=== PATIENT | male | born 1970 | race Caucasian/White ===

== ENCOUNTER 2018-12-29 06:39 | Inpatient (IN) ==
[2018-12-29] MEDS ORDERED: CeFAZolin Syr 2,000MG/20 ML 2,000 MG/20 ML SYRINGE IVPB ONE (07:11)
[2018-12-29] MEDS ORDERED: *HR* Propofol 200 MG/20 ML VIAL IVP ONE (07:12)
[2018-12-29] MEDS ORDERED: *HR* Midazolam HCl 2 MG/2 ML VIAL ONE (07:12)
[2018-12-29] MEDS ORDERED: *HR* Succinylcholine 200 MG/10 ML VIAL IVP ONE (07:12)
[2018-12-29] MEDS ORDERED: Lidocaine -MPF 4% 5 ML AMPUL ONE (07:12)
[2018-12-29] MEDS ORDERED: *HR* FentaNYL (PF) 100 MCG/2 ML VIAL ONE ×2 (07:12→08:50)
[2018-12-29] MEDS ORDERED: Lidocaine -MPF 2% 2 ML VIAL ONE (07:12)
[2018-12-29] MEDS ORDERED: Ringers Solution, Lactated 1,000 ML IVC SCH ×3 (07:15→11:08)
[2018-12-29] MEDS ORDERED: *HR* OxyCODONE Immed Rel 5 MG TABLET PO ONE (07:45)
[2018-12-29] MEDS ORDERED: Bacitracin 50,000 UNIT, Polymyxin B Sulfate 500,000 UNIT, Sodium Chloride IRRigation 1,... IR ONE (07:45)
[2018-12-29] MEDS ORDERED: Gabapentin 300 MG CAPSULE PO ONE (07:45)
[2018-12-29] MEDS ORDERED: *HR* OxyCODONE Immed Rel 5 MG TABLET ONE (07:56)
[2018-12-29] MEDS ORDERED: Gabapentin 300 MG CAPSULE ONE (07:57)
[2018-12-29] MEDS ORDERED: Acetaminophen IV 1,000 MG/100 ML INFUS..BTL ONE (07:58)
[2018-12-29] MEDS ORDERED: *HR* Rocuronium Bromide 50 MG/5 ML VIAL ONE (08:05)
[2018-12-29] MEDS ORDERED: Dexamethasone 4 MG/ML VIAL ONE (08:36)
[2018-12-29] MEDS ORDERED: Ondansetron 4 MG/2 ML VIAL ONE (08:36)
[2018-12-29] MEDS ORDERED: Acetaminophen 325 MG TABLET PO PRN (11:08)
[2018-12-29] MEDS ORDERED: Ondansetron 4 MG/2 ML VIAL IVP PRN (11:08)
[2018-12-29] MEDS ORDERED: Naloxone 0.4 MG/ML INJ IVP PRN (11:08)
[2018-12-29] MEDS: *HR* OxyCODONE Immed Rel 5 MG TABLET PO PRN ×2 (11:48→20:03)
[2018-12-29] MEDS ORDERED: Gabapentin 300 MG CAPSULE PO PRN (15:00)
[2018-12-29] MEDS ORDERED: MEDICINAL MARIJUANA PO SCH (15:00)
[2018-12-29] MEDS: *HR* HYDROcodone/Acet 5/325 mg TABLET PO PRN ×2 (15:39→23:10)
[2018-12-29] MEDS: ceFAZolin 2,000 MG in 0.9 % Sodium Chloride 100 ML IVPB SCH ×2 (15:41→23:11)
[2018-12-29] MEDS: PARoxetine 20 MG TABLET PO SCH (18:36)
[2018-12-29] MEDS: Terbinafine Hcl 250 MG PO SCH (18:37)
[2018-12-29] MEDS: Naltrexone HCl 50 MG TABLET PO SCH (18:37)
[2018-12-29] MEDS ORDERED: Famotidine 20 MG TABLET PO SCH (21:00)
[2018-12-30] MEDS: *HR* OxyCODONE Immed Rel 5 MG TABLET PO PRN ×5 (01:44→17:44)
[2018-12-30] MEDS: Terbinafine Hcl 250 MG PO SCH (16:56)
[2018-12-30] MEDS: PARoxetine 20 MG TABLET PO SCH (17:44)
[2018-12-30] MEDS: Naltrexone HCl 50 MG TABLET PO SCH (17:46)
[2018-12-30 18:00] VITALS: BP 112/68
== END 2018-12-30 18:45 | disposition home or self-care (01) | DRG 497 ==
LOC: SAMDAY 06:39 → 3NENU 11:14
PROVIDERS: ADMIT Orthopaedic Surgery Orthopaedic Surgery of the Spine; ATTEND Orthopaedic Surgery Orthopaedic Surgery of the Spine

== ENCOUNTER 2021-10-15 04:32 | Inpatient (IN) ==
[2021-10-15] MEDS ORDERED: Naloxone 0.4 MG/ML INJ IVP PRN (10:39)
[2021-10-15] MEDS ORDERED: Acetaminophen 325 MG TABLET PO PRN (10:39)
[2021-10-15] MEDS ORDERED: *HR* LORazepam 2 MG/ML VIAL IVP ONE (13:24)
[2021-10-15] MEDS: Dexmedetomidine HCl 400 MCG/100 ML MLS IVC SCH (15:27)
[2021-10-15 16:15] LABS: ABG Base Excess 4 mEq/L (-2 to 3); ABG HCO3 29 mEq/L (21-27); ABG Oxygen Saturation 93 % (95-98); ABG PCO2 43 mmHg (35-45); ABG PH 7.44 pH Units (7.32-7.45); ABG PO2 66 mmHg (85-104); ABG TCO2 30 mEq/L (20-26)
[2021-10-15] MEDS: Ampicillin/Sulbactam 1,500 MG in 0.9 % Sodium Chloride Mini Bag 100 ML IVPB SCH ×2 (18:14→23:26)
[2021-10-15] MEDS: Sodium Bicarbonate 75 MEQ in 0.45 % Sodium Chloride 1,000 ML IVC SCH (19:15)
[2021-10-16 00:56] LABS: Basophils % 0.5 %; Eosinophils # 0.1 K/mcL (0.0-0.6); Eosinophils % 3.2 %; Hematocrit 34.7 % (37.5-50.1); Immature Granulocytes % 0.5 % (0-4); Lymphocytes # 1.1 K/mcL (0.6-4.6); Lymphocytes % 24.6 %; Mean Corpuscular HGB Conc 34.6 g/dL (31.6-35.5); Mean Corpuscular Hemoglobin 31.7 pg (28.0-33.3); Mean Corpuscular Volume 91.8 fL (83.0-100.0); Mean Platelet Volume 10.9 fL (9.4-12.4); Monocytes # 0.4 K/mcL (0.0-1.3); Monocytes % 9.5 %; Neutrophils # 2.7 K/mcL (1.6-8.9); Platelet Count 142 K/mcL (140-400); Red Blood Count 3.78 M/mcL (4.19-5.50); Red Cell Distribution Width 12.2 % (11.5-14.5); Segmented Neutrophils % 61.7 %; White Blood Count 4.4 K/mcL (4.3-11.1)
[2021-10-16 00:58] LABS: VBG HCO3 34 mEq/L (21-27); VBG PCO2 47 mmHg (41-51); VBG PH 7.47 pH Units (7.32-7.42); VBG PO2 74 mmHg (25-50)
[2021-10-16 01:18] LABS: BUN/Creatinine Ratio 18 (6-26); Blood Urea Nitrogen 21 mg/dL (6-20); Calcium 8.8 mg/dL (8.6-10.3); Carbon Dioxide 35 mEq/L (23-29); Chloride 104 mEq/L (98-107); Glucose 87 mg/dL (70-105); Osmolality,Calculated 302 (280-300); Potassium 3.4 mEq/L (3.5-5.1); Sodium 145 mEq/L (136-145); eGFR For African Americans > 60 (> 60); eGFR For Non-African Americans > 60 (> 60)
[2021-10-16 01:19] LABS: Alanine Aminotransferase 14 Units/L (7-52); Albumin 3.3 g/dL (3.5-5.7); Albumin/Globulin Ratio 1.4 (1.1-2.2); Alkaline Phosphatase 42 Units/L (34-104); Aspartate Amino Transferase 20 Units/L (13-39); BUN/Creatinine Ratio 18 (6-26); Bilirubin,Total 0.5 mg/dL (0.3-1.0); Blood Urea Nitrogen 21 mg/dL (6-20); Calcium 8.8 mg/dL (8.6-10.3); Carbon Dioxide 35 mEq/L (23-29); Chloride 104 mEq/L (98-107); Globulin 2.4 g/dL (2.4-3.5); Glucose 87 mg/dL (70-105); Magnesium 2.1 mg/dL (1.6-2.6); Osmolality,Calculated 302 (280-300); Potassium 3.4 mEq/L (3.5-5.1); Sodium 145 mEq/L (136-145); Total Protein 5.7 g/dL (6.4-8.9); eGFR For African Americans > 60 (> 60); eGFR For Non-African Americans > 60 (> 60)
[2021-10-16] MEDS: Dexmedetomidine HCl 400 MCG/100 ML MLS IVC SCH ×3 (01:22→13:33)
[2021-10-16] MEDS: Sodium Bicarbonate 75 MEQ in 0.45 % Sodium Chloride 1,000 ML IVC SCH (05:28)
[2021-10-16] MEDS: Ampicillin/Sulbactam 1,500 MG in 0.9 % Sodium Chloride Mini Bag 100 ML IVPB SCH ×3 (05:28→17:18)
[2021-10-16] MEDS ORDERED: D5% in Water 1,000 ML IVC SCH (07:45)
[2021-10-16 08:47] LABS: ABG Base Excess 11 mEq/L (-2 to 3); ABG HCO3 36 mEq/L (21-27); ABG Oxygen Saturation 93 % (95-98); ABG PCO2 49 mmHg (35-45); ABG PH 7.47 pH Units (7.32-7.45); ABG PO2 63 mmHg (85-104); ABG TCO2 37 mEq/L (20-26)
[2021-10-16] MEDS: Sodium Bicarbonate 150 MEQ in D5% in Water 1,000 ML IVC SCH ×2 (08:56→17:17)
[2021-10-16 09:42] LABS: BUN/Creatinine Ratio 17 (6-26); Blood Urea Nitrogen 20 mg/dL (6-20); Calcium 8.9 mg/dL (8.6-10.3); Carbon Dioxide 35 mEq/L (23-29); Chloride 103 mEq/L (98-107); Glucose 99 mg/dL (70-105); Osmolality,Calculated 303 (280-300); Potassium 3.1 mEq/L (3.5-5.1); Sodium 145 mEq/L (136-145); eGFR For African Americans > 60 (> 60); eGFR For Non-African Americans > 60 (> 60)
[2021-10-16] MEDS ORDERED: *HR* LORazepam 2 MG/ML VIAL IVP PRN (09:49)
[2021-10-16] MEDS: *HR* LORazepam 2 MG/ML VIAL IVP PRN ×4 (10:47→22:22)
[2021-10-16 13:02] LABS: VBG HCO3 31 mEq/L (21-27); VBG PCO2 46 mmHg (41-51); VBG PH 7.45 pH Units (7.32-7.42); VBG PO2 135 mmHg (25-50)
[2021-10-16 13:48] LABS: BUN/Creatinine Ratio 14 (6-26); Blood Urea Nitrogen 17 mg/dL (6-20); Carbon Dioxide 31 mEq/L (23-29); Chloride 104 mEq/L (98-107); Glucose 126 mg/dL (70-105); Osmolality,Calculated 301 (280-300); Potassium 3.4 mEq/L (3.5-5.1); Sodium 144 mEq/L (136-145); eGFR For African Americans > 60 (> 60); eGFR For Non-African Americans > 60 (> 60)
[2021-10-16 16:30] LABS: VBG HCO3 28 mEq/L (21-27); VBG PCO2 41 mmHg (41-51); VBG PH 7.45 pH Units (7.32-7.42); VBG PO2 162 mmHg (25-50)
[2021-10-16 16:39] LABS: BUN/Creatinine Ratio 14 (6-26); Blood Urea Nitrogen 16 mg/dL (6-20); Calcium 8.9 mg/dL (8.6-10.3); Carbon Dioxide 31 mEq/L (23-29); Chloride 104 mEq/L (98-107); Glucose 117 mg/dL (70-105); Osmolality,Calculated 294 (280-300); Potassium 3.3 mEq/L (3.5-5.1); Sodium 141 mEq/L (136-145); eGFR For African Americans > 60 (> 60); eGFR For Non-African Americans > 60 (> 60)
[2021-10-16] MEDS ORDERED: *HR* LORazepam 2 MG/ML VIAL IVP ONE (19:45)
[2021-10-16 20:40] LABS: VBG HCO3 29 mEq/L (21-27); VBG PCO2 36 mmHg (41-51); VBG PO2 117 mmHg (25-50)
[2021-10-16 20:56] LABS: BUN/Creatinine Ratio 12 (6-26); Blood Urea Nitrogen 14 mg/dL (6-20); Calcium 8.7 mg/dL (8.6-10.3); Carbon Dioxide 30 mEq/L (23-29); Chloride 105 mEq/L (98-107); Glucose 107 mg/dL (70-105); Osmolality,Calculated 293 (280-300); Potassium 3.2 mEq/L (3.5-5.1); Sodium 141 mEq/L (136-145); eGFR For African Americans > 60 (> 60); eGFR For Non-African Americans > 60 (> 60)
[2021-10-16] MEDS ORDERED: Midazolam HCl 50 MG/50 ML IV.SOLN IVC SCH (23:45)
[2021-10-17 00:50] LABS: VBG HCO3 27 mEq/L (21-27); VBG PCO2 35 mmHg (41-51); VBG PO2 118 mmHg (25-50)
[2021-10-17 00:52] LABS: Hematocrit 34.4 % (37.5-50.1); Hemoglobin 11.9 g/dL (12.9-16.9); Mean Corpuscular HGB Conc 34.6 g/dL (31.6-35.5); Mean Corpuscular Hemoglobin 31.5 pg (28.0-33.3); Mean Platelet Volume 10.8 fL (9.4-12.4); Platelet Count 161 K/mcL (140-400); Red Blood Count 3.78 M/mcL (4.19-5.50); Red Cell Distribution Width 11.9 % (11.5-14.5)
[2021-10-17 01:03] LABS: BUN/Creatinine Ratio 12 (6-26); Blood Urea Nitrogen 13 mg/dL (6-20); Calcium 8.7 mg/dL (8.6-10.3); Carbon Dioxide 28 mEq/L (23-29); Chloride 104 mEq/L (98-107); Glucose 101 mg/dL (70-105); Osmolality,Calculated 290 (280-300); Potassium 3.2 mEq/L (3.5-5.1); Sodium 140 mEq/L (136-145); eGFR For African Americans > 60 (> 60); eGFR For Non-African Americans > 60 (> 60)
[2021-10-17 02:09] LABS: Bilirubin,Urine Negative (Negative); Blood,Urine Negative (Negative); Clarity,Urine Clear (Clear); Color,Urine Light-Yellow (Yellow); Glucose,Urine (UA) Normal (Normal); Ketones,Urine Negative (Negative); Leukocyte Esterase,Urine Negative (Negative); Mucus,Urine Few per lpf (None-Few); Nitrite,Urine Negative (Negative); PH,Urine 8.5 pH Units (5.0-8.0); Protein,Urine 100 mg/dL (Neg-Trace); Specific Gravity,Urine 1.023 (1.010-1.025); WBC,Urine 0-3 per hpf (0-3)
[2021-10-17] MEDS: Sodium Bicarbonate 150 MEQ in D5% in Water 1,000 ML IVC SCH (02:29)
[2021-10-17 05:04] LABS: VBG HCO3 26 mEq/L (21-27); VBG PCO2 33 mmHg (41-51); VBG PO2 112 mmHg (25-50)
[2021-10-17 05:37] LABS: BUN/Creatinine Ratio 11 (6-26); Blood Urea Nitrogen 11 mg/dL (6-20); Calcium 8.7 mg/dL (8.6-10.3); Carbon Dioxide 26 mEq/L (23-29); Chloride 103 mEq/L (98-107); Glucose 115 mg/dL (70-105); Osmolality,Calculated 286 (280-300); Potassium 3.3 mEq/L (3.5-5.1); Sodium 138 mEq/L (136-145); eGFR For African Americans > 60 (> 60); eGFR For Non-African Americans > 60 (> 60)
[2021-10-17] MEDS: Ampicillin/Sulbactam 1,500 MG in 0.9 % Sodium Chloride Mini Bag 100 ML IVPB SCH ×5 (06:54→23:13)
[2021-10-17] MEDS ORDERED: [UNRECOGNIZED DRUG - OTHER] IV SCH (08:00)
[2021-10-17] MEDS ORDERED: DEXMEDETOMIDINE IV SCH (08:00)
[2021-10-17] MEDS ORDERED: Dexmedetomidine HCl 400 MCG/100 ML MLS IVC SCH (08:00)
[2021-10-17] MEDS ORDERED: Naloxone 0.4 MG/ML INJ IVP PRN (08:53)
[2021-10-17] MEDS ORDERED: Acetaminophen 325 MG TABLET PO PRN (08:53)
[2021-10-17] MEDS: Dexmedetomidine HCl 400 MCG/100 ML MLS IVC SCH ×2 (09:01→19:21)
[2021-10-17] MEDS: Midazolam HCl 50 MG/50 ML IV.SOLN IVC SCH (13:35)
[2021-10-17 13:59] LABS: VBG HCO3 29 mEq/L (21-27); VBG PCO2 46 mmHg (41-51); VBG PH 7.41 pH Units (7.32-7.42); VBG PO2 75 mmHg (25-50)
[2021-10-17 15:28] LABS: BUN/Creatinine Ratio 10 (6-26); Blood Urea Nitrogen 12 mg/dL (6-20); Calcium 9.2 mg/dL (8.6-10.3); Carbon Dioxide 28 mEq/L (23-29); Chloride 103 mEq/L (98-107); Glucose 104 mg/dL (70-105); Osmolality,Calculated 294 (280-300); Potassium 3.6 mEq/L (3.5-5.1); Sodium 142 mEq/L (136-145); eGFR For African Americans > 60 (> 60); eGFR For Non-African Americans > 60 (> 60)
[2021-10-17] MEDS ORDERED: Trolamine Salicylate/Aloe Vera 85 APPL/85 GM TUBE TP PRN (18:58)
[2021-10-17] MEDS: *HR* Heparin 5,000 UNIT/ML VIAL SQ SCH (21:09)
[2021-10-18 05:10] LABS: Hematocrit 35.3 % (37.5-50.1); Hemoglobin 12.1 g/dL (12.9-16.9); Mean Corpuscular HGB Conc 34.3 g/dL (31.6-35.5); Mean Corpuscular Volume 90.5 fL (83.0-100.0); Mean Platelet Volume 10.1 fL (9.4-12.4); Platelet Count 191 K/mcL (140-400); Red Cell Distribution Width 11.8 % (11.5-14.5); White Blood Count 4.9 K/mcL (4.3-11.1)
[2021-10-18 05:12] LABS: VBG Ionized Calcium 1.17 mmol/L (1.15-1.35)
[2021-10-18] MEDS: Ampicillin/Sulbactam 1,500 MG in 0.9 % Sodium Chloride Mini Bag 100 ML IVPB SCH ×3 (05:13→17:59)
[2021-10-18] MEDS: *HR* Heparin 5,000 UNIT/ML VIAL SQ SCH ×3 (05:13→20:47)
[2021-10-18 05:36] LABS: BUN/Creatinine Ratio 14 (6-26); Blood Urea Nitrogen 17 mg/dL (6-20); Calcium 9.2 mg/dL (8.6-10.3); Carbon Dioxide 29 mEq/L (23-29); Chloride 103 mEq/L (98-107); Glucose 120 mg/dL (70-105); Magnesium 2.2 mg/dL (1.6-2.6); Osmolality,Calculated 293 (280-300); Phosphorous 4.3 mg/dL (2.7-4.5); Potassium 3.4 mEq/L (3.5-5.1); Sodium 140 mEq/L (136-145); eGFR For African Americans > 60 (> 60); eGFR For Non-African Americans > 60 (> 60)
[2021-10-18] MEDS ORDERED: Potassium Chloride Elixir 20 MEQ/15 ML UDC PO ONE (07:46)
[2021-10-18] MEDS: Midazolam HCl 50 MG/50 ML IV.SOLN IVC SCH (08:14)
[2021-10-18] MEDS: Dexmedetomidine HCl 400 MCG/100 ML MLS IVC SCH (10:56)
[2021-10-18 14:21] LABS: VBG PH 7.35 pH Units (7.32-7.42)
[2021-10-18] MEDS ORDERED: Naloxone 0.4 MG/ML INJ IVP PRN (19:37)
[2021-10-18] MEDS ORDERED: Dexmedetomidine HCl 400 MCG/100 ML MLS IVC SCH (19:37)
[2021-10-18] MEDS ORDERED: Trolamine Salicylate/Aloe Vera 85 APPL/85 GM TUBE TP PRN (19:37)
[2021-10-18] MEDS: Famotidine 20 MG TABLET PO SCH (21:27)
[2021-10-18] MEDS: Acetaminophen 325 MG TABLET PO PRN (22:08)
[2021-10-19] MEDS: Ampicillin/Sulbactam 1,500 MG in 0.9 % Sodium Chloride Mini Bag 100 ML IVPB SCH ×3 (01:10→11:50)
[2021-10-19 05:12] LABS: Hematocrit 34.2 % (37.5-50.1); Mean Corpuscular HGB Conc 35.1 g/dL (31.6-35.5); Mean Corpuscular Hemoglobin 31.3 pg (28.0-33.3); Mean Corpuscular Volume 89.3 fL (83.0-100.0); Mean Platelet Volume 10.6 fL (9.4-12.4); Platelet Count 209 K/mcL (140-400); Red Blood Count 3.83 M/mcL (4.19-5.50); Red Cell Distribution Width 11.7 % (11.5-14.5); White Blood Count 6.6 K/mcL (4.3-11.1)
[2021-10-19 05:19] LABS: BUN/Creatinine Ratio 13 (6-26); Blood Urea Nitrogen 14 mg/dL (6-20); Carbon Dioxide 27 mEq/L (23-29); Chloride 104 mEq/L (98-107); Glucose 113 mg/dL (70-105); Magnesium 1.7 mg/dL (1.6-2.6); Osmolality,Calculated 289 (280-300); Potassium 3.4 mEq/L (3.5-5.1); Sodium 139 mEq/L (136-145); eGFR For African Americans > 60 (> 60); eGFR For Non-African Americans > 60 (> 60)
[2021-10-19] MEDS: *HR* Heparin 5,000 UNIT/ML VIAL SQ SCH ×2 (06:21→16:01)
[2021-10-19] MEDS: Famotidine 20 MG TABLET PO SCH ×2 (09:29→20:01)
[2021-10-19] MEDS: Acetaminophen 325 MG TABLET PO PRN (12:16)
[2021-10-19 19:14] VITALS: BP 152/102; TEMP 99.2; O2SAT 97
[2021-10-19 20:17] VITALS: PULSE 91
== END 2021-10-19 20:53 | DRG 917 ==
LOC: 2NNU → SUATTDRO 10:39 → ICNU 10-17 08:46 → 2NNU 10-18 09:18
PROVIDERS: ADMIT Internal Medicine; ATTEND Student in an Organized Health Care Education/Training Program

== ENCOUNTER 2021-10-19 20:45 | Inpatient (IN) ==
[2021-10-19] MEDS ORDERED: *HR* LORazepam 1 MG TABLET PO PRN (21:10)
[2021-10-19] MEDS ORDERED: haloperidoL 5 MG TABLET PO PRN (21:10)
[2021-10-19] MEDS ORDERED: *HR* LORazepam 2 MG/ML VIAL IM PRN (21:10)
[2021-10-19] MEDS ORDERED: Haloperidol Lactate 5 MG/ML VIAL IM PRN (21:10)
[2021-10-19] MEDS ORDERED: traZODone 50 MG TABLET PO PRN (21:10)
[2021-10-20] MEDS: Famotidine 20 MG TABLET PO SCH ×2 (08:50→20:40)
[2021-10-20] MEDS ORDERED: Trolamine Salicylate/Aloe Vera 85 APPL/85 GM TUBE TP PRN (10:07)
[2021-10-20] MEDS: Acetaminophen 325 MG TABLET PO PRN (14:40)
[2021-10-20] MEDS: traZODone 50 MG TABLET PO PRN (20:40)
[2021-10-20] MEDS: hydrOXYzine pamoate 25 MG CAPSULE PO PRN (20:40)
[2021-10-21] MEDS: Famotidine 20 MG TABLET PO SCH (08:34)
[2021-10-21] MEDS: Acetaminophen 325 MG TABLET PO PRN (08:34)
[2021-10-21] MEDS ORDERED: Ibuprofen 800 MG TABLET PO PRN (10:58)
[2021-10-21] MEDS: Acetaminophen/Aspirin/Caffeine TABLET PO PRN (19:02)
[2021-10-21] MEDS: traZODone 50 MG TABLET PO PRN (20:36)
[2021-10-21] MEDS: hydrOXYzine pamoate 25 MG CAPSULE PO PRN (20:36)
[2021-10-22] MEDS: Acetaminophen/Aspirin/Caffeine TABLET PO PRN (11:42)
[2021-10-22] MEDS ORDERED: Mag Hydrox/Al Hydrox/Simeth 30 ML UDC PO PRN (16:13)
[2021-10-22] MEDS: traZODone 50 MG TABLET PO PRN (20:36)
[2021-10-23] MEDS: Acetaminophen/Aspirin/Caffeine TABLET PO PRN (06:54)
[2021-10-23 09:33] VITALS: BP 124/82; PULSE 86; TEMP 97.2; O2SAT 95
== END 2021-10-23 14:50 | disposition home or self-care (01) | DRG 885 ==
LOC: 1ANU 20:45
PROVIDERS: ADMIT Psychiatry & Neurology Psychiatry; ATTEND Psychiatry & Neurology Psychiatry